=== PATIENT | female | born 1980 ===

== ENCOUNTER 2018-04-08 08:56 | Emergency (ER) | payer OTHER ==
[~2018-04-08] VITALS: Ht 157.5 cm; Wt 48.5 kg
[2018-04-08] MEDS ORDERED: AVALIDE 300-121 EACH PO (09:02)
[2018-04-08] MEDS ORDERED: PROPRANOLOL HCL40 MG (09:04)
[2018-04-08] MEDS ORDERED: KETO10TA2 PO (13:01)
[2018-04-08] MEDS ORDERED: NORFLEX100MG PO (13:01)
== END 2018-04-08 14:39 | disposition home or self-care (01) ==
LOC: ER 08:56
DX: M54.5 Low back pain (principal); M54.2 Cervicalgia